=== PATIENT | male | born 1960 | race Caucasian/White ===

== ENCOUNTER 2016-06-15 09:06 | Day surgery (SDC) | payer BC ==
[~2016-06-15 09:06] MED LIST: RINGERS SOLUTION,LACTATED 1,000 ML IV PRN
--- OUTSIDE RECORDS SUMMARY | 2016-06-15 09:10 | XMS REPORT | Continuity of Care Document ---
:1960 Author Organization [facility] ([facility]) Address [place] [address] Phone [phone] Care Team Providers Name Role Phone Unavailable Primary Care Provider Unavailable Source Comments This disclosure is being made pursuant to the Care Everywhere program, applicable federal and state laws, and may not contain all informaitonavailable regarding this patient.[facility] ([facility]) Active Allergies and Adverse Reactions Not on File Current Medications Not on file Active Problems Not on file Social History Tobacco Use Types Packs/Day Years Used Date Never Assessed Plan of Care Health Maintenance Due Date Last Done Comments HCV Screening 1960 Hepatitis B Vaccine (1 of 3 - Primary Series) 1960 Tdap Vaccine 1973 Lipid Disorder Screening 1980 MMR Vaccine 1980 Td Vaccine 1980 Colonoscopy 10/19/2012 Prostate Cancer Screening 2012 Influenza Vaccine: Seasonal (#1) 10/07/2015 Results from Last 3 Months Not on file
[2016-06-15] MEDS ORDERED: RINGERS SOLUTION,LACTATED 1,000 ML IV ONE (09:24)
[2016-06-15] MEDS ORDERED: RINGERS SOLUTION,LACTATED 1,000 ML IV PRN (12:11)
[2016-06-15 13:10] VITALS: BP 136/75
--- NOTE | 2016-06-16 12:00 | OR ---
Operative Report - Dictated Report Narrative: OPERATIVE REPORT DATE OF OPERATION: 06/15/2016 PREOPERATIVE DIAGNOSIS: Family history of colon cancer POSTOPERATIVE DIAGNOSIS: Multiple colon polyps (pathology pending) OPERATION: Colonoscopy with hot biopsy forceps polypectomies 9 SURGEON: Marina Cedeño MD ANESTHESIA: NEMO Sanchez CRNA INDICATIONS FOR PROCEDURE: The patient is a 55-year-old male referred by Dr. Nigel Gaspar. His father had colon cancer. The patient's last colonoscopy was in 2010. The patient has had an episode of bright red rectal bleeding. FINDINGS: 0.6cm rectal polyp, 0.5 cm polyp at 15 cm, 0.4 cm polyp at 20 cm, 0.3 cm polyp at 60 cm, 0.3 cm polyp at 70 cm, three 3mm polyps at the hepatic flexure, small polyp adjacent ileocecal valve. NARRATIVE OF PROCEDURE: The patient was identified in the holding area, and prior to the administration of anesthetic, a multidisciplinary timeout was observed. With the patient in the left lateral position and after the administration of intravenous sedation, the perineum was inspected. There was no evidence of pilonidal disease or skin breakdown. The external appearance of the anus was normal. Sphincter tone was good. The flexible fiberoptic colonoscope was inserted into the rectum which was insufflated with air. The rectal mucosa and submucosal vascular pattern appeared normal, the prep was seen to be complete. There was a large polyp at approximately 5 cm which was biopsied and thoroughly destroyed with electrocautery. There was an additional polyp with inflammatory reaction at 15 cm which was biopsied and then thoroughly destroyed with electrocautery. An adjacent mucosal biopsy was also obtained. There was an area of polypoid change at 20 cm which was biopsied and thoroughly destroyed with electrocautery. The scope was advanced through the sigmoid colon, up the descending colon, where at 60 and 70 cm additional polyps were encountered. These were biopsied and thoroughly destroyed with electrocautery. The scope was advanced around the splenic flexure where the triangular haustral architecture of the transverse colon was seen. The scope was advanced across the transverse colon, around the hepatic flexure to the cecum, where the confluence of tenia and the ileocecal valve were identified. The mucosa at this level appeared normal. Adjacent to the ileocecal valve was a very small area of hyperplastic polypoid change. This was destroyed in place with electrocautery. 3 additional areas of possible hyperplastic polypoid change at the hepatic flexure were destroyed in place with electrocautery. The scope was then slowly withdrawn in a circular fashion so that all aspects of colonic mucosa were inspected. The colon was normal in course and caliber. The haustral architecture appeared well preserved throughout with no evidence of external compression. The mucosa and submucosal vascular pattern appeared normal, specifically there was no gross evidence to suggest colitis or inflammatory bowel disease and no AV malformations were seen. No diverticulosis was demonstrated. The scope was gradually withdrawn to the level of the rectum. As much insufflated air as possible was removed. The scope was withdrawn from the patient and the procedure terminated. The patient tolerated the anesthetic and procedure well without complication and was transferred back to the ambulatory surgery area awake and in stable condition. The patient remained stable throughout a period of postoperative observation. He denied abdominal discomfort, was able to tolerate by mouth intake, and was up without assistance. I shared the operative findings with the patient and he was given copies of the photographs which appear in the medical record. He was discharged home with instructions not to engage in hazardous activity today, but may resume normal activity tomorrow, and advance diet as tolerated. He is to continue those medications as listed in the history and physical exam. I made arrangements to contact him with the biopsy reports and will make additional recommendations for treatment and follow-up based upon those results. Reviewed and electronically signed
== END 2016-06-15 09:07 | disposition home or self-care (01) ==
LOC: AMB 09:06
PROVIDERS: ATTEND Surgery
PROC: 0DBE8ZX Excision of Large Intestine, Via Natural or Artificial Opening Endoscopic, Diagnostic (ICD-10-PCS; principal; 2016-06-15 10:00)
DX: Z12.11 Encounter for screening for malignant neoplasm of colon (principal); K63.5 Polyp of colon; I10 Essential (primary) hypertension; E11.9 Type 2 diabetes mellitus without complications; E78.5 Hyperlipidemia, unspecified; F32.9 Major depressive disorder, single episode, unspecified; Z80.0 Family history of malignant neoplasm of digestive organs; Z87.891 Personal history of nicotine dependence; Z68.42 Body mass index [BMI] 45.0-49.9, adult